=== PATIENT | female | born 1990 | race Two or more races ===

== ENCOUNTER 2021-11-08 23:03 | Emergency (ER) | payer MEDICAID ==
[~2021-11-08] VITALS: Ht 157.5 cm; Wt 93.0 kg
[2021-11-09] MEDS ORDERED: DexAMETHasone SOD PHOS 10MG/1ML VIAL INJ IM ONE (04:15)
[2021-11-09] MEDS ORDERED: PRED20TA2 PO (04:17)
[2021-11-09 04:37] VITALS: BP 155/105
== END 2021-11-09 04:44 | disposition home or self-care (01) ==
LOC: ER 23:03
DX: S86.819A Strain of other muscle(s) and tendon(s) at lower leg level, unspecified leg, initial encounter (principal); F41.9 Anxiety disorder, unspecified; W01.0XXA Fall on same level from slipping, tripping and stumbling without subsequent striking against object, initial encounter; Y93.89 Activity, other specified; Y92.89 Other specified places as the place of occurrence of the external cause; Y99.8 Other external cause status
CPT/HCPCS: 93971; 96372; 99284; J1100

== ENCOUNTER 2022-05-25 22:28 | Inpatient (IN) | payer BC, MEDICAID ==
[~2022-05-25] VITALS: Ht 160 cm; Wt 111.4 kg
[~2022-05-25 22:28] MED LIST: PRED20TA2 PO
[2022-05-25] MEDS ORDERED: ADENOSINE 6 MG/2 ML INJ IV ONE ×2 (22:45)
[2022-05-25] MEDS ORDERED: SODIUM CHLORIDE 0.9% 1,000 ML IVB ONE (22:45)
[2022-05-25 23:12] LABS: Basophils # (auto) 0.1 10 ^3/uL (0-0.2); Eosinophils # (auto) 0.3 10 ^3/uL (0-0.8); Hemoglobin 11.6 g/dL (12.2-16.2); Lymphocytes # (auto) 2.1 10 ^3/uL (0.4-5.4); Monocytes # (auto) 0.5 10 ^3/uL (0-1.3); Neutrophils # (auto) 4.6 10 ^3/uL (1.6-8.6); White Blood Cell 7.5 10^3/uL (4.4-10.8)
[2022-05-25 23:14] LABS: Basophils % (auto) 0.9 % (0.0-2.0); Eosinophils % (auto) 3.5 % (0.0-7.0); Hematocrit 36.7 % (36.0-46.0); Lymphocytes % (auto) 27.9 % (10.0-50.0); Mean Corpuscular Hgb Conc. 31.7 g/dL (32.0-36.0); Mean Corpuscular Volume 69.3 fL (80.0-100.0); Monocytes % (auto) 6.7 % (0.0-12.0); Red Cell Distribution Width 17.1 % (11.8-14.3)
[2022-05-25 23:28] LABS: Partial Thromboplastin Time 26.8 sec (24.6-33.4)
[2022-05-25 23:29] LABS: Albumin 3.6 g/dL (3.4-5.0); Calcium 8.1 mg/dL (8.5-10.1); Potassium 3.5 mmol/L (3.5-5.1)
[2022-05-25 23:33] LABS: BUN/Creatinine Ratio 16.7; Bilirubin, Total 0.6 mg/dL (0.2-1.0)
[2022-05-26] VITALS (7 sets, daily range): BP systolic 124–133; BP diastolic 65–90
[2022-05-26] MEDS ORDERED: MORPHINE SULFATE INJ 2 MG/ml SYRG IV PRN
[2022-05-26] MEDS ORDERED: NITROGLYCERIN 0.4 MG SL TAB SL PRN
[2022-05-26] MEDS ORDERED: DOCUSATE SOD 100 MG CAP PO PRN
[2022-05-26] MEDS ORDERED: HYDROcodone-ACET 5/325MG TAB PO PRN
[2022-05-26] MEDS ORDERED: ONDANSETRON HCL 4 MG/2 ML VIAL IV PRN
[2022-05-26] MEDS ORDERED: SERT25TA84 PO (05:51)
[2022-05-26] MEDS: SODIUM CHLOR 0.9% PF (SALINE LOCK) 10ML VIAL/SYR IV SCH ×3 (05:58→21:22)
[2022-05-26 06:36] LABS: Basophils # (auto) 0.1 10 ^3/uL (0-0.2); Basophils % (auto) 1.1 % (0.0-2.0); Eosinophils # (auto) 0.2 10 ^3/uL (0-0.8); Eosinophils % (auto) 3.1 % (0.0-7.0); Hematocrit 34.6 % (36.0-46.0); Lymphocytes # (auto) 1.9 10 ^3/uL (0.4-5.4); Lymphocytes % (auto) 26.2 % (10.0-50.0); Mean Corpuscular Hemoglobin 22.1 pg (28.0-32.0); Mean Corpuscular Hgb Conc. 31.8 g/dL (32.0-36.0); Mean Corpuscular Volume 69.7 fL (80.0-100.0); Monocytes # (auto) 0.6 10 ^3/uL (0-1.3); Neutrophils # (auto) 4.6 10 ^3/uL (1.6-8.6); Neutrophils % (auto) 61.6 % (37.0-80.0); Red Blood Cells 4.97 10^6/uL (4.0-5.20); Red Cell Distribution Width 17.7 % (11.8-14.3); White Blood Cell 7.4 10^3/uL (4.4-10.8)
[2022-05-26 06:57] LABS: Calcium 8.3 mg/dL (8.5-10.1)
[2022-05-26 07:04] LABS: Albumin 3.1 g/dL (3.4-5.0); BUN/Creatinine Ratio 18.2; Bilirubin, Total 0.5 mg/dL (0.2-1.0); Total Protein 5.8 g/dL (6.4-8.2)
[2022-05-26] MEDS: ATENOLOL 25 MG TAB PO SCH ×2 (09:53→21:23)
[2022-05-26] MEDS ORDERED: SERTRALINE HCL 50 MG TAB PO SCH (10:00)
[2022-05-26 11:00] LABS: Alcohol, Urine < 3.0 mg/dL (0-10); Amphetamine Screen, Urine NEGATIVE (NEGATIVE); Barbiturate Scree,Urine NEGATIVE (NEGATIVE); Benzodiazephine Screen, Urine NEGATIVE (NEGATIVE); Cannabinoid Screen, Urine NEGATIVE (NEGATIVE); Cocaine Screen, Urine NEGATIVE (NEGATIVE); Opiate Scree,Urine NEGATIVE (NEGATIVE); Phencyclidine Screen, Urine NEGATIVE (NEGATIVE)
[2022-05-26] MEDS: SERTRALINE HCL 50 MG TAB PO SCH (12:03)
[2022-05-26] MEDS: ACETAMINOPHEN 325 MG TAB PO PRN (16:00)
[2022-05-26] MEDS ORDERED: diphenhdrAMINE HCL 25 MG CAP PO PRN (16:15)
[2022-05-26] MEDS ORDERED: KETOROLAC TROMETH 30 MG/ML 1ML VIAL IV ONE (20:45)
[2022-05-26 22:08] LABS: Urine Bacteria NONE SEEN /hpf (None Seen); Urine Blood Negative /uL (Negative); Urine Specific Gravity 1.006 (1.001-1.035); Urine WBC 12 /hpf (0 - 5)
[2022-05-27] MEDS: ACETAMINOPHEN 325 MG TAB PO PRN (02:36)
[2022-05-27 05:00] VITALS: BP 111/64
[2022-05-27] MEDS: SODIUM CHLOR 0.9% PF (SALINE LOCK) 10ML VIAL/SYR IV SCH (05:55)
[2022-05-27 08:00] VITALS: BP 133/76
[2022-05-27 09:00] VITALS: BP 127/79
[2022-05-27] MEDS ORDERED: MAGN400T40 PO (09:18)
[2022-05-27] MEDS: ATENOLOL 25 MG TAB PO SCH (09:41)
[2022-05-27] MEDS: SERTRALINE HCL 50 MG TAB PO SCH (09:41)
[2022-05-27 09:59] VITALS: BP 127/79
[2022-05-27 11:00] VITALS: BP 120/78
[2022-05-27 11:09] VITALS: BP 127/79
== END 2022-05-27 11:32 | disposition home or self-care (01) | DRG 310 ==
LOC: ER 22:28 → EEVIPCON 22:28 → TELE 05-26 → TELE-CENTR 05-26 03:10
PROVIDERS: ADMIT Nurse Practitioner Family; ATTEND Nurse Practitioner Family
DX: I47.1 Supraventricular tachycardia (principal); D64.9 Anemia, unspecified; F41.9 Anxiety disorder, unspecified; Z20.822 Contact with and (suspected) exposure to COVID-19; I10 Essential (primary) hypertension; Z98.84 Bariatric surgery status; Z79.899 Other long term (current) drug therapy
CPT/HCPCS: 36415; 71045; 80053; 80307; 81001; 81025; 84443; 84484; 85025; 85379; 85610; 85730; 87426; 92960; 93306; 96361; 96374; 99291; G0378; J1885

== ENCOUNTER → 2023-05-28 | Outpatient (CLI) | payer BC ==
[~2023-05-28] MED LIST changes: +MAGN400T40 PO; +SERT25TA84 PO
[2023-05-28 11:25] LABS: Urine Bacteria None Seen /hpf (None Seen); Urine WBC None Seen /hpf (0 - 5)
[2023-05-28 12:02] LABS: Basophils # (auto) 0.1 10 ^3/uL (0-0.2); Eosinophils # (auto) 0.4 10 ^3/uL (0-0.8); Hemoglobin 13.1 g/dL (12.2-16.2); Mean Corpuscular Volume 74.1 fL (80.0-100.0); Monocytes # (auto) 0.4 10 ^3/uL (0-1.3)
[2023-05-28 12:05] LABS: Basophils % (auto) 0.8 % (0.0-2.0); Eosinophils % (auto) 5.7 % (0.0-7.0); Hematocrit 39.9 % (36.0-46.0); Lymphocytes # (auto) 1.5 10 ^3/uL (0.4-5.4); Lymphocytes % (auto) 21.3 % (10.0-50.0); Mean Corpuscular Hemoglobin 24.3 pg (28.0-32.0); Mean Corpuscular Hgb Conc. 32.8 g/dL (32.0-36.0); Monocytes % (auto) 5.8 % (0.0-12.0); Neutrophils # (auto) 4.7 10 ^3/uL (1.6-8.6); Neutrophils % (auto) 66.4 % (37.0-80.0); Red Blood Cells 5.38 10^6/uL (4.0-5.20); White Blood Cell 7.1 10^3/uL (4.4-10.8)
[2023-05-28 12:23] LABS: Alanine Aminotransferase 31 U/L (7-40); Albumin 4.6 g/dL (3.2-4.8); Alkaline Phosphatase 80 U/L (46-116); Anion Gap 4 (5-15); Aspartate Aminotransferase 18 U/L (13-40); BUN/Creatinine Ratio 18.5 (10.0-20.0); Blood Urea Nitrogen 10 mg/dL (9-23); Calcium 9.5 mg/dL (8.5-10.1); Carbon Dioxide 28 mmol/L (20-30); Chloride 108 mmol/L (98-107); Cholesterol 127 mg/dL (< 200); Glucose 88 mg/dL (74-106); HDL Cholesterol 46 mg/dL (40-59); LDL Cholesterol 72 mg/dL (< 100); Sodium 140 mmol/L (136-145); Triglycerides 84 mg/dL (< 150)
[2023-05-28 12:25] LABS: Bilirubin, Total 0.8 mg/dL (0.2-1.0); Total Protein 7.2 g/dL (5.7-8.2)
[2023-05-28 12:27] LABS: Free T4 (Free Thyroxine) 0.89 ng/dL (0.89-1.76)
[2023-05-28 13:43] LABS: Urine Blood Negative /uL (Negative); Urine Clarity Clear (Clear); Urine Color Yellow (Yellow); Urine Protein, UAD TRACE (Negative); Urine Specific Gravity 1.028 (1.001-1.035); Urine pH 7.5 (5.0-8.0)
[2023-05-28 13:57] LABS: Erythrocyte Sedimentation Rate 11 mm/hr (0-20)
[2023-05-29 07:06] LABS: Rheumatoid Arthritis Factor <10.0 IU/mL (<14.0)
[2023-05-29 15:07] LABS: CCP IgG/IgA Antibody 0 units (0-19)
== END | disposition home or self-care (01) ==
LOC: LAB 11:06
PROVIDERS: ATTEND Internal Medicine
DX: I47.10 Supraventricular tachycardia, unspecified (principal); F41.9 Anxiety disorder, unspecified
CPT/HCPCS: 36415; 80053; 80061; 81001; 82306; 82607; 83540; 84425; 84439; 84443; 85025; 85652; 86200; 86431

== ENCOUNTER 2023-06-27 16:02 | Emergency (ER) | payer BC, MEDICAID ==
[~2023-06-27] VITALS: Ht 157.5 cm; Wt 86.6 kg
[2023-06-27] MEDS ORDERED: ONDANSETRON ODT 4 MG TAB PO ONE (16:30)
[2023-06-27] MEDS ORDERED: MORPHINE SULFATE INJ 2 MG/ml SYRG IM ONE (16:30)
[2023-06-27 17:04] LABS: Basophils # (auto) 0.1 10 ^3/uL (0-0.2); Eosinophils # (auto) 0.4 10 ^3/uL (0-0.8); Hematocrit 38.7 % (36.0-46.0); Hemoglobin 12.3 g/dL (12.2-16.2); Lymphocytes # (auto) 1.5 10 ^3/uL (0.4-5.4); Mean Corpuscular Hgb Conc. 31.8 g/dL (32.0-36.0); Monocytes # (auto) 0.5 10 ^3/uL (0-1.3); Neutrophils # (auto) 5.2 10 ^3/uL (1.6-8.6); Nucleated Red Blood Cells % 0.1 %
[2023-06-27 17:06] LABS: Basophils % (auto) 0.7 % (0.0-2.0); Eosinophils % (auto) 4.8 % (0.0-7.0); Mean Corpuscular Hemoglobin 23.7 pg (28.0-32.0); Mean Corpuscular Volume 74.6 fL (80.0-100.0); Monocytes % (auto) 6.5 % (0.0-12.0); Red Blood Cells 5.18 10^6/uL (4.0-5.20); Red Cell Distribution Width 16.7 % (11.8-14.3); White Blood Cell 7.6 10^3/uL (4.4-10.8)
[2023-06-27 17:21] LABS: Alanine Aminotransferase 23 U/L (7-40); Albumin 4.4 g/dL (3.2-4.8); Alkaline Phosphatase 85 U/L (46-116); Anion Gap 5 (5-15); Aspartate Aminotransferase 16 U/L (13-40); BUN/Creatinine Ratio 21.8 (10.0-20.0); Blood Urea Nitrogen 12 mg/dL (9-23); Carbon Dioxide 27 mmol/L (20-30); Chloride 107 mmol/L (98-107); Glucose 90 mg/dL (74-106); Lipase 44 U/L (12-53); Potassium 4.3 mmol/L (3.5-5.1); Sodium 139 mmol/L (136-145)
[2023-06-27 17:22] LABS: Bilirubin, Total 0.6 mg/dL (0.2-1.0); Total Protein 6.4 g/dL (5.7-8.2)
[2023-06-27 18:16] LABS: Urine Bacteria NONE SEEN /hpf (None Seen); Urine Blood Negative /uL (Negative); Urine Clarity Clear (Clear); Urine Color Yellow (Yellow); Urine Mucus FEW (None Seen); Urine Protein, UAD Negative (Negative); Urine Specific Gravity 1.023 (1.001-1.035); Urine WBC 1 /hpf (0 - 5); Urine pH 7.5 (5.0-8.0)
[2023-06-27] MEDS ORDERED: DICY10CA PO (18:41)
[2023-06-27] MEDS ORDERED: ZOFR4T PO (18:41)
[2023-06-27] MEDS ORDERED: HYDROmorphone HCL 2 MG/ML VL/or syr IM ONE ×2 (18:45→20:30)
[2023-06-27] MEDS ORDERED: IOHEXOL 300 MG/ML 100ML BOTTLE IJ ONE (20:08)
[2023-06-27] MEDS ORDERED: ONDANSETRON HCL 4 MG/2 ML VIAL IV ONE ×2 (20:30→22:45)
[2023-06-27 22:50] VITALS: PULSE 96; RESP 18; TEMP 98.1; O2SAT 100
[2023-06-27 23:04] VITALS: BP 127/83; PULSE 96; RESP 20
== END 2023-06-27 23:00 | disposition home or self-care (01) ==
LOC: EEVIPCON 16:02 → ER 16:02
DX: R10.13 Epigastric pain (principal); F41.9 Anxiety disorder, unspecified; E66.01 Morbid (severe) obesity due to excess calories; Z98.890 Other specified postprocedural states; Z79.899 Other long term (current) drug therapy; Z68.34 Body mass index [BMI] 34.0-34.9, adult
CPT/HCPCS: 36415; 74176; 74177; 80053; 81001; 81025; 83690; 83880; 84484; 85025; 96372; 96374; 96376; 99285; J1170; J2270; J2405; Q0162; Q9967

== ENCOUNTER → 2023-08-29 | Outpatient (CLI) | payer BC ==
[~2023-08-29] MED LIST changes: +DICY10CA PO; +ZOFR4T PO
[2023-08-29 13:59] LABS: Alanine Aminotransferase 23 U/L (7-40); Albumin 4.4 g/dL (3.2-4.8); Alkaline Phosphatase 77 U/L (46-116); Anion Gap 5 (5-15); Aspartate Aminotransferase 20 U/L (13-40); BUN/Creatinine Ratio 18.9 (10.0-20.0); Blood Urea Nitrogen 10 mg/dL (9-23); Calcium 9.6 mg/dL (8.5-10.1); Carbon Dioxide 26 mmol/L (20-30); Chloride 109 mmol/L (98-107); Glucose 92 mg/dL (74-106); Sodium 140 mmol/L (136-145)
[2023-08-29 14:00] LABS: Bilirubin, Total 0.7 mg/dL (0.2-1.0); Total Protein 6.9 g/dL (5.7-8.2)
== END | disposition home or self-care (01) ==
LOC: LAB 13:19
PROVIDERS: ATTEND Internal Medicine
DX: E87.6 Hypokalemia (principal); R74.01 Elevation of levels of liver transaminase levels
CPT/HCPCS: 36415; 80053

== ENCOUNTER 2023-12-15 04:28 | Emergency (ER) | payer BC, MEDICAID ==
[~2023-12-15] VITALS: Ht 157.5 cm; Wt 75.4 kg
[2023-12-15] MEDS ORDERED: CEPH500C PO (04:54)
[2023-12-15] MEDS ORDERED: BACDST PO (04:54)
[2023-12-15] MEDS ORDERED: cefTRIAXone W LIDOCAINE 1 GM IM IM ONE (05:00)
[2023-12-15] MEDS: KETOROLAC TROMETH 60MG/2ML VIAL IM ONE (05:09)
[2023-12-15] MEDS: cefTRIAXone SOD 1,000 MG VL IM ONE (05:11)
[2023-12-15 05:22] VITALS: BP 146/90; PULSE 83; RESP 18; TEMP 97.9; O2SAT 100
== END 2023-12-15 05:22 | disposition home or self-care (01) ==
LOC: ER 04:28
DX: L03.211 Cellulitis of face (principal); Z79.899 Other long term (current) drug therapy
CPT/HCPCS: 96372; 99284; J0696; J1885

== ENCOUNTER 2023-12-20 11:47 | Emergency (ER) | payer BC, MEDICAID ==
[~2023-12-20] VITALS: Ht 157.5 cm; Wt 76.6 kg
[~2023-12-20 11:47] MED LIST changes: +BACDST PO; +CEPH500C PO
[2023-12-20] MEDS: SUCRALFATE 1 GM TAB PO ONE (12:15)
[2023-12-20 12:22] LABS: Basophils # (auto) 0.1 10 ^3/uL (0-0.2); Eosinophils # (auto) 0.4 10 ^3/uL (0-0.8); Hemoglobin 10.2 g/dL (12.2-16.2); Monocytes # (auto) 0.5 10 ^3/uL (0-1.3); Neutrophils # (auto) 3.9 10 ^3/uL (1.6-8.6)
[2023-12-20 12:24] LABS: Basophils % (auto) 1.2 % (0.0-2.0); Eosinophils % (auto) 5.8 % (0.0-7.0); Hematocrit 32.7 % (36.0-46.0); Lymphocytes # (auto) 2.3 10 ^3/uL (0.4-5.4); Lymphocytes % (auto) 31.3 % (10.0-50.0); Mean Corpuscular Hemoglobin 22.4 pg (28.0-32.0); Mean Corpuscular Hgb Conc. 31.2 g/dL (32.0-36.0); Mean Corpuscular Volume 71.7 fL (80.0-100.0); Monocytes % (auto) 7.3 % (0.0-12.0); Neutrophils % (auto) 54.4 % (37.0-80.0); Red Blood Cells 4.56 10^6/uL (4.0-5.20); Red Cell Distribution Width 16.2 % (11.8-14.3); White Blood Cell 7.2 10^3/uL (4.4-10.8)
[2023-12-20 12:48] LABS: Chloride 105 mmol/L (98-107); Potassium 3.7 mmol/L (3.5-5.1); Sodium 138 mmol/L (136-145)
[2023-12-20 12:49] LABS: Anion Gap 4 (5-15); Calcium 9.5 mg/dL (8.5-10.1); Carbon Dioxide 29 mmol/L (20-30)
[2023-12-20 12:54] LABS: BUN/Creatinine Ratio 19.6 (10.0-20.0); Blood Urea Nitrogen 11 mg/dL (9-23); Glucose 101 mg/dL (74-106)
[2023-12-20] MEDS: PANTOPRAZOLE 40 MG TAB PO ONE (13:09)
[2023-12-20] MEDS ORDERED: PANT40TA2 PO (13:35)
[2023-12-20] MEDS ORDERED: SUCR1SUS5 PO (13:35)
[2023-12-20 13:50] VITALS: BP 150/94; PULSE 90; RESP 18; TEMP 98; O2SAT 100
== END 2023-12-20 13:50 | disposition home or self-care (01) ==
LOC: ER 11:47
DX: K21.9 Gastro-esophageal reflux disease without esophagitis (principal); Z90.49 Acquired absence of other specified parts of digestive tract; Z79.899 Other long term (current) drug therapy
CPT/HCPCS: 36415; 80048; 85025

== ENCOUNTER → 2024-01-23 | Outpatient (CLI) | payer BC ==
[~2024-01-23] MED LIST changes: +PANT40TA2 PO; +SUCR1SUS5 PO
[2024-01-23 07:22] LABS: Basophils # (auto) 0.1 10 ^3/uL (0-0.2); Lymphocytes # (auto) 1.2 10 ^3/uL (0.4-5.4); Monocytes # (auto) 0.5 10 ^3/uL (0-1.3); Neutrophils # (auto) 3.5 10 ^3/uL (1.6-8.6); Nucleated Red Blood Cells % 0.1 %
[2024-01-23 07:24] LABS: Basophils % (auto) 1.2 % (0.0-2.0); Eosinophils # (auto) 0.3 10 ^3/uL (0-0.8); Eosinophils % (auto) 5.1 % (0.0-7.0); Hematocrit 28.5 % (36.0-46.0); Hemoglobin 9.2 g/dL (12.2-16.2); Lymphocytes % (auto) 21.8 % (10.0-50.0); Mean Corpuscular Hemoglobin 21.5 pg (28.0-32.0); Mean Corpuscular Hgb Conc. 32.1 g/dL (32.0-36.0); Monocytes % (auto) 8.6 % (0.0-12.0); Neutrophils % (auto) 63.3 % (37.0-80.0); Red Blood Cells 4.26 10^6/uL (4.0-5.20); Red Cell Distribution Width 15.3 % (11.8-14.3); White Blood Cell 5.5 10^3/uL (4.4-10.8)
[2024-01-23 07:58] LABS: Alanine Aminotransferase 22 U/L (7-40); Albumin 4.4 g/dL (3.2-4.8); Alkaline Phosphatase 80 U/L (46-116); Anion Gap 4 (5-15); Aspartate Aminotransferase 15 U/L (13-40); Bilirubin, Total 0.9 mg/dL (0.2-1.0); Blood Urea Nitrogen 8 mg/dL (9-23); Calcium 9.3 mg/dL (8.5-10.1); Carbon Dioxide 26 mmol/L (20-30); Chloride 110 mmol/L (98-107); Cholesterol 135 mg/dL (< 200); Glucose 72 mg/dL (74-106); HDL Cholesterol 62 mg/dL (40-59); LDL Cholesterol 66 mg/dL (< 100); Potassium 3.6 mmol/L (3.5-5.1); Sodium 140 mmol/L (136-145); Total Protein 6.7 g/dL (5.7-8.2); Triglycerides 66 mg/dL (< 150)
[2024-01-23 08:17] LABS: Erythrocyte Sedimentation Rate 11 mm/hr (0-20)
[2024-01-23 10:28] LABS: Uric Acid 3.3 mg/dL (3.1-7.8)
[2024-01-23 11:44] LABS: Urine Bacteria None Seen /hpf (None Seen)
[2024-01-23 12:00] LABS: Urine Blood Negative /uL (Negative); Urine Clarity Clear (Clear); Urine Color Light-Yellow (Yellow); Urine Protein, UAD Negative (Negative); Urine Specific Gravity 1.012 (1.001-1.035); Urine Urobilinogen Normal (Negative); Urine WBC <1 /hpf (0 - 5)
[2024-01-24 08:06] LABS: Complement C3 90 mg/dL (82-167); Rheumatoid Arthritis Factor <10.0 IU/mL (<14.0); Thyroid Peroxidase (TPO) Ab <9 IU/mL (0-34)
[2024-01-24 09:06] LABS: Anti-Nuclear Antibody Direct Negative (Negative); Anti-dsDNA Antibody 9 IU/mL (0-9); Antiscleroderma-70 Antibody <0.2 AI (0.0-0.9); RNP Antibody 0.5 AI (0.0-0.9); Sjogren's Anti-SS-A Antibody <0.2 AI (0.0-0.9); Sjogren's Anti-SS-B Antibody <0.2 AI (0.0-0.9); Smith Antibody <0.2 AI (0.0-0.9)
[2024-01-25 11:07] LABS: Actin (Smooth Muscle) Antibody 13 Units (0-19); CCP IgG/IgA Antibody 0 units (0-19); Mitochondrial (M2) Antibody <20.0 Units (0.0-20.0)
[2024-01-26 12:06] LABS: Antiparietal Cell Antibody 1.6 Units (0.0-20.0)
[2024-01-27 12:06] LABS: Anti-Striated Muscle Antibody Negative (Neg:<1:100)
== END | disposition home or self-care (01) ==
LOC: LAB 06:55
PROVIDERS: ATTEND Internal Medicine
DX: M25.50 Pain in unspecified joint (principal); D64.9 Anemia, unspecified
CPT/HCPCS: 36415; 80053; 80061; 81001; 82270; 84439; 84443; 84550; 85025; 85652; 86160; 86200; 86225; 86235; 86376; 86431

== ENCOUNTER → 2024-02-04 | Outpatient (CLI) | payer BC ==
[~2024-02-04] MED LIST changes: +SERT-160 PO
[2024-02-04 10:48] LABS: Basophils # (auto) 0.1 10 ^3/uL (0-0.2); Basophils % (auto) 1.2 % (0.0-2.0); Eosinophils # (auto) 0.2 10 ^3/uL (0-0.8); Eosinophils % (auto) 3.4 % (0.0-7.0); Hematocrit 30.1 % (36.0-46.0); Hemoglobin 9.5 g/dL (12.2-16.2); Lymphocytes # (auto) 1.2 10 ^3/uL (0.4-5.4); Mean Corpuscular Hemoglobin 20.7 pg (28.0-32.0); Mean Corpuscular Hgb Conc. 31.5 g/dL (32.0-36.0); Mean Corpuscular Volume 65.8 fL (80.0-100.0); Monocytes # (auto) 0.4 10 ^3/uL (0-1.3); Monocytes % (auto) 7.1 % (0.0-12.0); Neutrophils # (auto) 3.8 10 ^3/uL (1.6-8.6); Neutrophils % (auto) 66.3 % (37.0-80.0); Nucleated Red Blood Cells % 0.1 %; Red Blood Cells 4.57 10^6/uL (4.0-5.20); Red Cell Distribution Width 15.8 % (11.8-14.3); White Blood Cell 5.7 10^3/uL (4.4-10.8)
[2024-02-04 11:09] LABS: % Iron Saturation 5.4 % (15-50)
[2024-02-04 11:13] LABS: Alanine Aminotransferase 23 U/L (7-40); Albumin 4.4 g/dL (3.2-4.8); Alkaline Phosphatase 79 U/L (46-116); Anion Gap 5 (5-15); Aspartate Aminotransferase 14 U/L (13-40); Blood Urea Nitrogen 7 mg/dL (9-23); Calcium 9.7 mg/dL (8.5-10.1); Carbon Dioxide 28 mmol/L (20-30); Chloride 105 mmol/L (98-107); Glucose 89 mg/dL (74-106); Potassium 4.2 mmol/L (3.5-5.1); Sodium 138 mmol/L (136-145); Total Protein 6.6 g/dL (5.7-8.2)
[2024-02-04 11:14] LABS: Ferritin 2.2 ng/mL (10-291); Folate (Folic Acid) 11.14 ng/mL (>5.38)
[2024-02-05 08:06] LABS: Immunoglobulin A 121 mg/dL (87-352)
[2024-02-07 06:06] LABS: Endomysial IgA Antibody Negative (Negative)
== END | disposition home or self-care (01) ==
LOC: LAB 10:32
PROVIDERS: ATTEND Student in an Organized Health Care Education/Training Program
DX: D64.9 Anemia, unspecified (principal); Z98.84 Bariatric surgery status
CPT/HCPCS: 36415; 80053; 82607; 82728; 82746; 82784; 83516; 83540; 83550; 83615; 85025; 85045; 86255

== ENCOUNTER 2024-02-06 21:03 | Inpatient (IN) | payer BC ==
[~2024-02-06] VITALS: Ht 157.5 cm; Wt 80.6 kg
[~2024-02-06 21:03] MED LIST changes: -SERT-160 PO
[2024-02-06] MEDS: SODIUM CHLORIDE 0.9% 1,000 ML IV ONE (21:26)
[2024-02-06 21:30] LABS: Basophils # (auto) 0.1 10 ^3/uL (0-0.2); Eosinophils # (auto) 0.2 10 ^3/uL (0-0.8); Hemoglobin 9.1 g/dL (12.2-16.2); Lymphocytes # (auto) 0.6 10 ^3/uL (0.4-5.4); Mean Corpuscular Hemoglobin 19.7 pg (28.0-32.0); Mean Corpuscular Hgb Conc. 30.3 g/dL (32.0-36.0); Mean Corpuscular Volume 64.9 fL (80.0-100.0); Neutrophils % (auto) 87.3 % (37.0-80.0)
[2024-02-06] MEDS: MORPHINE SULFATE 4 MG/ML SYR/VIAL IV ONE (21:31)
[2024-02-06] MEDS: ONDANSETRON HCL 4 MG/2 ML VIAL IV ONE (21:31)
[2024-02-06 21:32] VITALS: PULSE 106; RESP 18; O2SAT 100
[2024-02-06 21:32] LABS: Basophils % (auto) 0.4 % (0.0-2.0); Eosinophils % (auto) 1.6 % (0.0-7.0); Hematocrit 29.9 % (36.0-46.0); Lymphocytes % (auto) 4.7 % (10.0-50.0); Monocytes # (auto) 0.7 10 ^3/uL (0-1.3); Neutrophils # (auto) 10.8 10 ^3/uL (1.6-8.6); Red Blood Cells 4.61 10^6/uL (4.0-5.20); White Blood Cell 12.4 10^3/uL (4.4-10.8)
[2024-02-06 21:34] LABS: Chloride 107 mmol/L (98-107); Potassium 4.1 mmol/L (3.5-5.1); Sodium 138 mmol/L (136-145)
[2024-02-06 21:35] LABS: Anion Gap 7 (5-15); Calcium 9.3 mg/dL (8.5-10.1); Carbon Dioxide 24 mmol/L (20-30)
[2024-02-06 21:40] LABS: BUN/Creatinine Ratio 26.5 (10.0-20.0); Blood Urea Nitrogen 13 mg/dL (9-23); Glucose 126 mg/dL (74-106)
[2024-02-06] MEDS: PANTOPRAZOLE 40 MG/10 ML VIAL INJ IV ONE (21:51)
[2024-02-06 22:03] LABS: Platelet Estimate Adequate
[2024-02-06 22:04] LABS: Anisocytosis Slight; Hypochromia Marked
[2024-02-06] MEDS: HYDROmorphone HCL 2 MG/ML VL/or syr IV ONE (23:44)
[2024-02-06] MEDS: PROCHLORPERAZINE EDISYLATE 5 MG/ML 2ML VIAL IV ONE (23:44)
[2024-02-07] VITALS (9 sets, daily range): BP systolic 111–123; BP diastolic 58–72; PULSE 95–109; RESP 16–20; TEMP 98.2–99; O2SAT 93–97
[2024-02-07] MEDS ORDERED: DOCUSATE SOD 100 MG CAP PO PRN
[2024-02-07] MEDS: PIPERACILLIN-TAZOB 3.375GM 100 ML IV ONE (00:07)
[2024-02-07] MEDS: SODIUM CHLORIDE 0.9% 1,000 ML IV SCH ×2 (00:17→14:26)
[2024-02-07 00:19] LABS: Urine Bacteria FEW /hpf (None Seen); Urine Blood Negative /uL (Negative); Urine Clarity Clear (Clear); Urine Color Light-Yellow (Yellow); Urine Mucus FEW (None Seen); Urine Protein, UAD TRACE (Negative); Urine Specific Gravity 1.026 (1.001-1.035); Urine Urobilinogen Normal (Negative); Urine WBC 6 /hpf (0 - 5)
[2024-02-07] MEDS ORDERED: MORPHINE SULFATE INJ 2 MG/ml SYRG IV PRN (00:45)
[2024-02-07] MEDS ORDERED: NITROGLYCERIN 0.4 MG SL TAB SL PRN (00:45)
[2024-02-07] MEDS ORDERED: SERT-160 PO (03:44)
[2024-02-07] MEDS: ONDANSETRON HCL 4 MG/2 ML VIAL IV PRN (03:44)
[2024-02-07] MEDS: HYDROmorphone HCL 2 MG/ML VL/or syr IV PRN ×2 (03:52→14:22)
[2024-02-07] MEDS: metroNIDAZOLE 500MG/100ML 100 ML IV SCH (06:09)
[2024-02-07 06:29] LABS: Basophils # (auto) 0 10 ^3/uL (0-0.2); Basophils % (auto) 0.1 % (0.0-2.0); Eosinophils # (auto) 0 10 ^3/uL (0-0.8); Hemoglobin 8.8 g/dL (12.2-16.2); Lymphocytes # (auto) 0.2 10 ^3/uL (0.4-5.4); Monocytes # (auto) 0.5 10 ^3/uL (0-1.3)
[2024-02-07 06:31] LABS: Eosinophils % (auto) 0.1 % (0.0-7.0); Hematocrit 28.5 % (36.0-46.0); Mean Corpuscular Hemoglobin 20.1 pg (28.0-32.0); Mean Corpuscular Hgb Conc. 30.8 g/dL (32.0-36.0); Mean Corpuscular Volume 65.4 fL (80.0-100.0); Monocytes % (auto) 2.9 % (0.0-12.0); Neutrophils # (auto) 16.1 10 ^3/uL (1.6-8.6); Neutrophils % (auto) 95.9 % (37.0-80.0); Red Blood Cells 4.35 10^6/uL (4.0-5.20); Red Cell Distribution Width 15.8 % (11.8-14.3); White Blood Cell 16.7 10^3/uL (4.4-10.8)
[2024-02-07 06:48] LABS: Alanine Aminotransferase 792 U/L (7-40); Albumin 3.9 g/dL (3.2-4.8); Alkaline Phosphatase 157 U/L (46-116); Anion Gap 6 (5-15); BUN/Creatinine Ratio 33.3 (10.0-20.0); Blood Urea Nitrogen 13 mg/dL (9-23); Carbon Dioxide 23 mmol/L (20-30); Chloride 109 mmol/L (98-107); Glucose 141 mg/dL (74-106); Potassium 3.7 mmol/L (3.5-5.1); Sodium 138 mmol/L (136-145)
[2024-02-07 06:49] LABS: Bilirubin, Total 1.7 mg/dL (0.2-1.0); Total Protein 6.1 g/dL (5.7-8.2)
[2024-02-07 06:59] LABS: Aspartate Aminotransferase 1671 U/L (13-40)
[2024-02-07] MEDS: PANTOPRAZOLE 40 MG/10 ML VIAL INJ IV SCH (09:29)
[2024-02-07] MEDS: cefTRIAXone 1GM/50ML D5W 50 ML IV SCH (09:29)
[2024-02-07 11:35] LABS: INR 1.06 (0.9-1.15); Partial Thromboplastin Time 21.5 SEC (24.5-34.5); Prothrombin Time 11.2 sec (9.3-11.8)
[2024-02-07] MEDS: ACETAMINOPHEN 325 MG TAB PO PRN (14:26)
[2024-02-07 15:30] LABS: COVID19 ANTIGEN SOFIA FIA NEGATIVE (NEGATIVE)
[2024-02-07] MEDS: HYDROcodone-ACET 5/325MG TAB PO PRN (21:19)
[2024-02-07 22:35] LABS: Hemoglobin 7.7 g/dL (12.2-16.2)
[2024-02-07 22:36] LABS: Hematocrit 24.5 % (36.0-46.0)
[2024-02-08] VITALS (8 sets, daily range): BP systolic 112–128; BP diastolic 55–70; PULSE 69–87; RESP 17–20; TEMP 97.5–98.9; O2SAT 97–100
[2024-02-08] MEDS: MAALOX PLUS or MAALOX 30 ML PO PRN (04:50)
[2024-02-08 06:17] LABS: Basophils # (auto) 0 10 ^3/uL (0-0.2); Eosinophils # (auto) 0 10 ^3/uL (0-0.8); Hemoglobin 7.9 g/dL (12.2-16.2); Lymphocytes # (auto) 0.5 10 ^3/uL (0.4-5.4); Monocytes # (auto) 0.6 10 ^3/uL (0-1.3); Neutrophils # (auto) 4.4 10 ^3/uL (1.6-8.6); Nucleated Red Blood Cells % 0.1 %; White Blood Cell 5.6 10^3/uL (4.4-10.8)
[2024-02-08 06:21] LABS: Basophils % (auto) 0.3 % (0.0-2.0); Eosinophils % (auto) 0.8 % (0.0-7.0); Hematocrit 25.2 % (36.0-46.0); Lymphocytes % (auto) 9.6 % (10.0-50.0); Mean Corpuscular Hemoglobin 20.6 pg (28.0-32.0); Mean Corpuscular Hgb Conc. 31.3 g/dL (32.0-36.0); Mean Corpuscular Volume 65.7 fL (80.0-100.0); Monocytes % (auto) 10.9 % (0.0-12.0); Neutrophils % (auto) 78.4 % (37.0-80.0); Red Blood Cells 3.84 10^6/uL (4.0-5.20); Red Cell Distribution Width 15.8 % (11.8-14.3)
[2024-02-08 06:44] LABS: Alanine Aminotransferase 450 U/L (7-40); Albumin 3.3 g/dL (3.2-4.8); Alkaline Phosphatase 123 U/L (46-116); Anion Gap 5 (5-15); Aspartate Aminotransferase 277 U/L (13-40); BUN/Creatinine Ratio 12.5 (10.0-20.0); Bilirubin, Total 0.6 mg/dL (0.2-1.0); Blood Urea Nitrogen 5 mg/dL (9-23); Calcium 8.4 mg/dL (8.7-10.4); Carbon Dioxide 24 mmol/L (20-30); Chloride 112 mmol/L (98-107); Glucose 89 mg/dL (74-106); Magnesium 1.4 mg/dL (1.6-2.6); Potassium 2.7 mmol/L (3.5-5.1); Sodium 141 mmol/L (136-145)
[2024-02-08 06:45] LABS: Total Protein 5.2 g/dL (5.7-8.2)
[2024-02-08 08:10] LABS: Hypochromia Moderate; Platelet Estimate Adequate
[2024-02-08] MEDS ORDERED: POTASSIUM CHL 20MEQ/100ML 100 ML IV SCH (08:30)
[2024-02-08] MEDS: MAGNESIUM SULFATE 1GM/100ML 100 ML IV SCH (10:16)
[2024-02-08 11:07] LABS: Hematocrit 26.1 % (36.0-46.0); Hemoglobin 7.9 g/dL (12.2-16.2)
[2024-02-08] MEDS: POTASSIUM CHLORIDE 20 MEQ, LIDOCAINE 1% (LOCAL ANESTH.) 2 ML in SODIUM CHL 0.9% 100 ML IV ONE ×2 (13:16→17:59)
[2024-02-08] MEDS: LOPERAMIDE HCL 2 MG CAP/TAB PO PRN (15:16)
[2024-02-08 22:14] LABS: Hemoglobin 7.7 g/dL (12.2-16.2)
[2024-02-08 22:16] LABS: Hematocrit 25.3 % (36.0-46.0)
[2024-02-09] VITALS (8 sets, daily range): BP systolic 108–130; BP diastolic 61–78; PULSE 57–73; RESP 16–20; TEMP 97.5–98.3; O2SAT 98–100
[2024-02-09 06:05] LABS: Basophils # (auto) 0 10 ^3/uL (0-0.2); Eosinophils # (auto) 0.1 10 ^3/uL (0-0.8); Hemoglobin 7.5 g/dL (12.2-16.2); Lymphocytes # (auto) 1.6 10 ^3/uL (0.4-5.4); Mean Corpuscular Volume 65.7 fL (80.0-100.0); Monocytes # (auto) 0.6 10 ^3/uL (0-1.3); Neutrophils # (auto) 2.2 10 ^3/uL (1.6-8.6); Nucleated Red Blood Cells % 0.2 %; White Blood Cell 4.5 10^3/uL (4.4-10.8)
[2024-02-09 06:07] LABS: Eosinophils % (auto) 2.6 % (0.0-7.0); Hematocrit 23.9 % (36.0-46.0); Lymphocytes % (auto) 34.7 % (10.0-50.0); Mean Corpuscular Hemoglobin 20.5 pg (28.0-32.0); Mean Corpuscular Hgb Conc. 31.2 g/dL (32.0-36.0); Monocytes % (auto) 13.8 % (0.0-12.0); Neutrophils % (auto) 47.9 % (37.0-80.0); Red Blood Cells 3.64 10^6/uL (4.0-5.20); Red Cell Distribution Width 15.9 % (11.8-14.3)
[2024-02-09 06:19] LABS: Alanine Aminotransferase 272 U/L (7-40); Alkaline Phosphatase 102 U/L (46-116); Anion Gap 7 (5-15); Calcium 8.2 mg/dL (8.5-10.1); Carbon Dioxide 22 mmol/L (20-30); Chloride 114 mmol/L (98-107); Glucose 84 mg/dL (74-106); Magnesium 1.6 mg/dL (1.6-2.6); Potassium 3.3 mmol/L (3.5-5.1); Sodium 143 mmol/L (136-145)
[2024-02-09 06:20] LABS: Albumin 3.1 g/dL (3.2-4.8); Aspartate Aminotransferase 83 U/L (13-40)
[2024-02-09 06:21] LABS: Bilirubin, Total 0.3 mg/dL (0.2-1.0); Total Protein 4.7 g/dL (5.7-8.2)
[2024-02-09 06:48] LABS: BUN/Creatinine Ratio 13.2 (10.0-20.0); Blood Urea Nitrogen < 5 mg/dL (9-23)
[2024-02-09] MEDS: IRON SUCROSE COMPLEX 100 ML IV SCH (12:33)
[2024-02-09] MEDS: POTASSIUM EFFERVESENT TAB 25 MEQ PO ONE (17:51)
[2024-02-09 22:17] LABS: Hematocrit 27.6 % (36.0-46.0)
[2024-02-09 22:20] LABS: Hemoglobin 8.5 g/dL (12.2-16.2)
[2024-02-10 01:27] VITALS: BP 111/59; PULSE 61; RESP 18; TEMP 98; O2SAT 97
[2024-02-10 05:00] VITALS: BP 110/64; PULSE 58; RESP 18; TEMP 97.9; O2SAT 98
[2024-02-10 06:53] LABS: Basophils # (auto) 0 10 ^3/uL (0-0.2); Basophils % (auto) 0.7 % (0.0-2.0); Eosinophils # (auto) 0.2 10 ^3/uL (0-0.8); Hemoglobin 7.7 g/dL (12.2-16.2); Lymphocytes # (auto) 1.8 10 ^3/uL (0.4-5.4); Monocytes # (auto) 0.5 10 ^3/uL (0-1.3)
[2024-02-10 06:58] LABS: Eosinophils % (auto) 4.2 % (0.0-7.0); Hematocrit 24.3 % (36.0-46.0); Lymphocytes % (auto) 41.7 % (10.0-50.0); Mean Corpuscular Hemoglobin 20.6 pg (28.0-32.0); Mean Corpuscular Hgb Conc. 31.8 g/dL (32.0-36.0); Mean Corpuscular Volume 64.8 fL (80.0-100.0); Monocytes % (auto) 11.5 % (0.0-12.0); Neutrophils # (auto) 1.8 10 ^3/uL (1.6-8.6); Neutrophils % (auto) 41.9 % (37.0-80.0); Nucleated Red Blood Cells % 0.2 %; Red Blood Cells 3.75 10^6/uL (4.0-5.20); Red Cell Distribution Width 15.7 % (11.8-14.3); White Blood Cell 4.3 10^3/uL (4.4-10.8)
[2024-02-10 07:10] LABS: Alanine Aminotransferase 204 U/L (7-40); Alkaline Phosphatase 91 U/L (46-116); Anion Gap 5 (5-15); Calcium 8.6 mg/dL (8.7-10.4); Carbon Dioxide 27 mmol/L (20-30); Chloride 111 mmol/L (98-107); Glucose 85 mg/dL (74-106); Magnesium 1.5 mg/dL (1.6-2.6); Potassium 3.3 mmol/L (3.5-5.1); Sodium 143 mmol/L (136-145)
[2024-02-10 07:11] LABS: Albumin 3.2 g/dL (3.2-4.8); Aspartate Aminotransferase 48 U/L (13-40); Bilirubin, Total 0.3 mg/dL (0.2-1.0); Phosphorus 3.1 mg/dL (2.4-5.1)
[2024-02-10 07:12] LABS: Total Protein 4.9 g/dL (5.7-8.2)
[2024-02-10 07:30] LABS: BUN/Creatinine Ratio 13.9 (10.0-20.0); Blood Urea Nitrogen < 5 mg/dL (9-23)
[2024-02-10 08:00] VITALS: PULSE 64
[2024-02-10] MEDS: POTASSIUM EFFERVESENT TAB 25 MEQ PO ONE (08:15)
[2024-02-10 09:00] VITALS: BP 113/67; PULSE 65; RESP 17; TEMP 97.4; O2SAT 98
[2024-02-10] MEDS: MAGNESIUM OXIDE 400 MG TAB PO ONE ×2 (10:13→13:30)
[2024-02-10] MEDS: POTASSIUM CHL 20 Meq TABLET PO ONE (12:03)
[2024-02-10 13:00] VITALS: BP 118/70; PULSE 64; RESP 18; TEMP 98; O2SAT 97
[2024-02-10] MEDS ORDERED: CEPH250C PO (13:38)
[2024-02-10] MEDS ORDERED: METR-344 PO (13:38)
[2024-02-10] MEDS ORDERED: PANT40T PO (13:43)
[2024-02-10] MEDS ORDERED: FERR1TAB36 PO (13:43)
[2024-02-10] MEDS ORDERED: CYAN-17 PO (13:43)
[2024-02-10 15:07] LABS: Hepatitis B Core Total AB Negative (Negative)
[2024-02-11 08:06] LABS: Hepatitis A Total Antibody Positive (Negative); Hepatitis B Surface Antibody Positive (Negative)
[2024-02-11 08:07] LABS: Hepatitis A Ab IgM Negative; Hepatitis B Core IgM Negative; Hepatitis B Surface Antigen Negative (Negative); Hepatitis C Antibody Negative (Negative)
== END 2024-02-10 15:00 | disposition home or self-care (01) | DRG 872 ==
LOC: EEVIPCON 21:03 → ER 21:03 → TELE-CENTR 02-07 00:40 → TELE 02-07 00:40 → TELE-CENTR 02-07 02:40
PROVIDERS: ADMIT Internal Medicine Pulmonary Disease; ATTEND Internal Medicine Pulmonary Disease
DX: A41.9 Sepsis, unspecified organism (principal); D53.9 Nutritional anemia, unspecified; R74.01 Elevation of levels of liver transaminase levels; Z20.822 Contact with and (suspected) exposure to COVID-19; D50.9 Iron deficiency anemia, unspecified; K75.9 Inflammatory liver disease, unspecified; K52.9 Noninfective gastroenteritis and colitis, unspecified; Z82.5 Family history of asthma and other chronic lower respiratory diseases; Z98.84 Bariatric surgery status; Z82.49 Family history of ischemic heart disease and other diseases of the circulatory system; Z83.3 Family history of diabetes mellitus; Z79.899 Other long term (current) drug therapy
CPT/HCPCS: 36415; 74176; 76705; 80048; 80053; 80074; 80329; 81001; 82270; 82962; 83036; 83605; 83690; 83735; 83986; 84100; 84702; 85014; 85018; 85025; 85048; 85610; 85730; 86038; 86704; 86706; 86708; 86803; 87040; 87045; 87340; 87426; 87427; 87493; 96361; 96365; 96375; G0378; J1756; J2001; J2405; J2543; J3490